=== PATIENT | female | born 1980 | race Caucasian/White ===

== ENCOUNTER 2020-06-28 09:02 | Emergency (ER) | payer MEDICAID, SELFPAY ==
[2020-06-28] VITALS (23 sets, daily range): BP systolic 111–145; BP diastolic 61–100; PULSE 61–88; RESP 12–22; TEMP 37.2; O2SAT 96–100
--- NOTE | 2020-06-28 09:00 | DI.CT_ITS ---
EXAM: CT CHEST PE ABD PELVIS W CLINICAL HISTORY: right sided chest pain and abdominal pain. TECHNIQUE: Imaging Protocol: Axial CT angiography was performed with multi-slice acquisition and mu lti-planar and/or 3D reconstructions. CONTRAST MATERIAL: Intravenous: Omnipaque 350 Contrast volume:100 mL COMPARISON: No exams were available for comparison FINDINGS: CHEST: Pulmonary Arteries: No evidence of filling defect to suggest pulmonary emboli. Tracheobronchial tree: Patent where visualized. Mediastinum and Deborah: No dominant adenopathy or fluid collection. Small hiatal hernia. Pulmonary parenchyma: No consolidation or dominant measurable mass. No architectural distortion. Mild dependent atelectasis. Pleura: No effusion or pneumothorax. Heart: The heart is not dilated. No coronary artery calcifications are seen. No pericardial effusion. Aorta: Thoracic aorta non-dilated. No evidence of dissection. Bones: Degenerative changes. ABDOMEN: Liver: Normal density. There is a tiny hypodense lesion in the right lobe of the liver. It is too sm all for further characterization, but likely reflects a small cyst. The liver is mildly enlarged trey suring 18 cm in length. Portal, Superior Mesenteric, and Splenic Veins: Unremarkable. Gallbladder and Biliary Tract: No radiodense calculus or dilation. Pancreas: Normal density, no abnormal calcifications or inflammatory process. Spleen: Normal. Adrenals: No masses seen. Kidneys: Normal size, contour and axis. No radiodense stones or obstructive uropathy. No masses seen. Abdominal Aorta: Abdominal portion non-dilated. Bowel: No obstruction or bowel wall thickening. The appendix crosses the midline to the left and is u nremarkable. Peritoneal Cavity: No ascites, collection or mesenteric inflammatory response. Lymph Nodes: Within normal limits. Bones: Unremarkable. Soft Tissues: Unremarkable. PELVIS: Bladder: Nondistended. There is thickening of the wall of the urinary bladder. This likely is due t o the underdistention. No inflammatory changes are seen around the urinary bladder. Cystitis is con sidered less likely. Please correlate clinically. Reproductive Organs: Unremarkable as visualized. The patient has an IUD which appears to be in good p osition. Bilateral ovarian cysts are present. The largest is on the left ovary and measures 2 x 1.8 cm. Lymph Nodes: Within normal limits. Bones: Within normal limits. IMPRESSION: 1. No evidence of an acute abdominal or pelvic process. 2. Apparent thickening of the wall of the urinary bladder. This is likely due to underdistention. N o inflammatory changes are present. Cystitis is considered less likely. 3. 4. No evidence of pulmonary embolus, thoracic aortic dissection or aneurysm. 5. No acute pulmonary process. RADIATION DOSE DELIVERED: 1,417.18mGy.cm Total DLP 1,417.18mGy.cm Total DLP DATA REPOSITORY: All CT scans at this facility are submitted to the National Radiology Data Registry (NRDR) Dose Index Registry (DIR) with the [employer] (A[employer]). RADIATION OPTIMIZATION: All CT scans at this facility use at least one of these dose optimization te chniques: automated exposure control; mA and/or kV adjustment per patient size (includes targeted exa ms where dose is matched to clinical indication); or iterative reconstruction.
--- NOTE | 2020-06-28 09:00 | RT.EKG_ITS ---
APPROVED REPORT Exam: Resting ECG Patient Location: E HR:66 bpm ECG Measurements Heart Rate 66 AXIS AZ 150 P 45 QRSd 89 QRS 44 QT 409 T 39 QTc 427 Conclusion Sinus arrhythmia...V-rate 52- 72, variation>10% no acute ischemic findings
--- NOTE | 2020-06-28 09:12 | ED.GENADUL_ITS ---
Discharge Plan Disposition Patient Disposition: AGAINST MEDICAL ADVICE Condition: Stable Discharge Details Clinical Impression: Chest pain Primary Care Provider: Gabriela,Local ED Provider: Patrick Kumar Home Meds and New Rx's Prescriptions: Continued Mirena 20 mcg/24 hours (6 yrs) 52 mg Intrauterine Device 1 device INTRAUTERINE ONCE RF: 0 methadone 10 mg/mL Concentrate 80 mg PO DAILY RF: 0 naproxen sodium [Aleve] 220 mg Capsule 220 mg PO BID RF: 0 Discharge Instructions Instructions: Chest Pain (ED) Additional Instructions: you decided not to stay for repeat blood work if you develop severe worsening pain, difficulty breathing or feel more ill return to the emergency department follow up with your primary care provider as soon as possible for the chest pain as well as likely undiagnosed diabetes Medical Decision Making 40 yo female on methadone, smoker, who comes in with chest tightness starting an hour ago while driving to [facility], got her methadone then ems was called and she was transported here. She states she had similar pain a month ago and was diagnosed with a virus. She has had n/v x1 as well. She arrives hd stable with unremarkable ekg. She is speaking in full sentences and appears anxious on exam. She has tenderness to palpation to the right abdomen and right chest no distention normal bowel sounds, clear lungs without murmurs. No rashes on the hands or other stigmata of endocarditis. This could be chest wall pain but given description of chest tightness and heart score of 2 will obtain troponin. She has a wells score that is moderate so will obtain CTA for PE and also abdomen/pelvis ct given the right sided abdominal tenderness and concern for possible pancreatitis vs cholecystitis. pt's labs show elevated glucose with glucosuria so likely has undiagnosed DM, also has leukocytosis which is likely reactive. No infectious symptoms. On reassessment she is feeling better without tenderness. Suspect this could be cannabinoid induced vomit given she is positive for thc. Will obtain delta troponin and continue to monitor. pt now doesn't want to stay for repeat tropoin and ecg. She has capacity to make her own decisions and understands risks of leaving and missing an nstemi including and permanent disability and is willing to accept these risks. I advised her she can always return if she changes her mind. I am placing her on our follow up list as well to see her pcp as soon as possible for the chest pain as well as likely undiagnosed t2dm Differential Diagnosis Differential Diagnosis: costochondirtis, PE, nstemi, cholecystitis Medical Records Medical records reviewed: Yes I reviewed the patient's medical records. Imaging Data Radiologic Study: Attestation: I personally reviewed and interpreted this imaging study as follows: Imaging: CT Scan Radiologist's impression: IMPRESSION: 1. No evidence of an acute abdominal or pelvic process. 2. Apparent thickening of the wall of the urinary bladder. This is likely due to underdistention. No inflammatory changes are present. Cystitis is considered less likely. 3. 4. No evidence of pulmonary embolus, thoracic aortic dissection or aneurysm. 5. No acute pulmonary process. Lab Data Lab results reviewed: Yes I reviewed the patient's lab results. ECG Data Attestation: I personally reviewed and interpreted this ECG (s) as follows: Prior ECG tracings: not available for review Interpretation: sinus rhythm, rate of 66, pr 150, qtc 427, no acute st t wave ischemic findings HPI General Mode of arrival: EMS . Date/Time Provider Initiated Documentation: 06/28/20 09:07 . Limitations to Documentation: no limitations . Information obtained by: patient . History of Present Illness 40 year old F presents to the emergency department with the chief complaint of chest pain, described as moderate, with intensity rated at 5. Quality is described as aching, and is localized to the chest. Patient reports no radiation. Patient started experiencing this hour(s) (1) and it has been constant. No relieving factors improve symptom(s), No exacerbating factors reported . Patient notes nausea/vomiting. Patient did receive the following treatments prior to arrival, none Related Data Home Medications Medication Instructions Recorded Confirmed Mirena 1 device INTRAUTERINE ONCE 06/28/20 06/28/20 methadone 80 mg PO DAILY 06/28/20 06/28/20 naproxen sodium [Aleve] 220 mg PO BID 06/28/20 06/28/20 Allergies Allergy/AdvReac Type Severity Reaction Status Date / Time latex Allergy Skin Rash Unverified 06/28/20 09:05 General Stated Complaint: Chest Pain DAVIDE: 2 Review of Systems All systems reviewed & are unremarkable except as noted in HPI and below Constitutional Constitutional: Denies chills, Denies fever(s) and Denies weakness Cardiovascular Cardiovascular: Denies dyspnea Respiratory Respiratory: Denies cough and Denies dyspnea Musculoskeletal Musculoskeletal: Denies joint swelling Neurologic Neurologic: Denies weakness [facility] Medical History (Updated 06/28/20 @ 11:39 by Patrick Kumar MD) Substance abuse clean x 3 years, on Methadone through [facility] Surgical History (Updated 06/28/20 @ 09:07 by Anahi Topete) H/O: Social History Smoking/Tobacco Use Status: Current every day Tobacco Type: cigarettes Smoking risk assessment performed?: Yes Alcohol Intake: never Drug use: Daily Substance use type: marijuana Do you feel safe at home: Yes Do you feel safe in your relationship?: Yes Exam Const General: no acute distress Orientation: alert HENMT Head: normal to inspection Ears: external ears normal General nose exam: external nose normal Mouth: moist mucous membranes Eyes General: appearance normal, both eyes and all related structures Neck Neck: normal visual inspection Chest Chest: tenderness Resp Effort & Inspection: normal respiratory effort and able to speak in complete sentences Cardio Rate: regular rate GI Palpation: not rigid and tender Skin General skin exam: no rashes or lesions noted Neuro General: patient alert and patient oriented x3 Extrem General: normal to inspection Psych Mental Status: mental status grossly normal Course Vital Signs Vital signs: Vital Signs Temperature 37.2 C 06/28/20 09:02 Pulse 68 06/28/20 09:02 Respiratory Rate 20 06/28/20 09:02 Blood Pressure 145/100 H 06/28/20 09:02 Pulse Oximetry 99 06/28/20 09:02 Temperature 37.2 C 06/28/20 09:02 Temperature Source Skin 06/28/20 09:02 Pulse 68 06/28/20 09:02 Respiratory Rate 20 06/28/20 09:02 Respiratory Effort Non-Labored 06/28/20 09:08 Blood Pressure 145/100 H 06/28/20 09:02 Blood Pressure Position Supine 06/28/20 09:02 Pulse Oximetry 99 06/28/20 09:02 Oxygen Delivery Method Room Air 06/28/20 09:02 Oxygen Flow Rate 0 06/28/20 09:02 Pain Level 6 06/28/20 09:02
[2020-06-28 09:22] LABS: Absolute Basophil Count 0.08 10^3/uL (0.0-0.2); Absolute Eosinophil Count 0.06 10^3/uL (0.0-0.7); Basophils % 0.4; Eosinophils % 0.3; HCT 43.3 % (36.0-46.0); HGB 14.7 g/dL (11.2-15.7); Immature Grans % 0.5; MCH 29.6 pg (27.0-33.0); MCHC 33.9 % (32.0-36.0); MCV 87.1 fL (80-95); MPV 8.7 fL (8.0-11.0); Monocytes % 3.6; Neutrophils % 85.2; Nucleated RBC 0 %; Platelet Count 339 10^3/uL (130-400); RBC 4.97 10^6/uL (3.93-5.22); RDW 11.8 % (11.7-14.6); RDW-SD 37.6 fL; WBC 19.38 10^3/uL (4.4-10.8)
[2020-06-28 09:29] LABS: Absolute Lymphocyte Count 1.94 10^3/uL (1.2-3.4); Absolute Neutrophil Count 16.51 10^3/uL (1.2-6.7)
[2020-06-28 09:33] LABS: Bilirubin Negative (Negative); Blood Trace-intact (Negative); Clarity Clear (Clear); Glucose >=1000 mg/dL (Negative); Ketones 15 mg/dL (Negative); Leukocyte Esterase Negative (Negative); Nitrite Negative (Negative); Specific Gravity >= 1.030 (1.005-1.025); Urobilinogen 0.2 EU/dL (Up TO 0.2); pH 6.5 (5-8)
[2020-06-28] MEDS: Ondansetron 4 MG/2 ML VIAL IVP (09:33)
[2020-06-28 09:34] LABS: PTT Activated 24.5 sec (21.0-27.5); Prothrombin Time 10.3 sec (9.3-11.0)
[2020-06-28 09:36] LABS: ALT 20 U/L (14-59); AST 14 U/L (15-37); Albumin 3.9 g/dL (3.4-5.0); Alkaline Phosphatase 114 U/L (46-116); BUN 9 mg/dL (7-18); Bilirubin, Total 0.3 mg/dL (0.2-1.0); CREATININE 0.8 mg/dL (0.55-1.02); Calcium 8.9 mg/dL (8.5-10.1); Chloride 99 mmol/L (98-107); Glucose 238 mg/dL (74-106); Lipase 88 U/L (73-393); Magnesium 1.7 mg/dL (1.8-2.4); Sodium 137 mmol/L (136-145)
[2020-06-28 09:38] LABS: Bilirubin, Direct < 0.05 mg/dL (0.00-0.20); Troponin I < 0.05 ng/mL (<0.06)
[2020-06-28 09:44] LABS: *AMPHETAMINES SCREEN URINE Negative (Negative); *BARBITURATES SCREEN URINE Negative (Negative); *BENZODIAZEPINES SCREEN URINE Negative (Negative); Cannabinoids THC POSITIVE (Negative); Cocaine Screen,Urine Negative (Negative); METHADONE URINE SCREEN POSITIVE (Negative); OPIATES URINE SCREEN Negative (Negative)
[2020-06-28 09:45] LABS: Bacteria Moderate HPF (Negative); C & S Indicated? No/Sq. Contamination; Casts Negative LPF (Negative); Crystals Negative HPF (Negative); Epithelial Cells Many HPF (Negative); Mucus Moderate (Negative); Tricyclic Antidepressants Negative (Negative)
[2020-06-28] MEDS: Omnipaque 350 MG/ML 100 ML BTL IJ (09:55)
[2020-06-28] MEDS: Normal Saline - Diluent 50 ML VIAL IV (09:56)
[2020-06-28 10:15] LABS: D-Dimer 223 ng/mlFEU (<500)
[2020-06-28] MEDS: Prochlorperazine 10 MG/2 ML VIAL IVP (10:34)
--- NOTE | 2020-06-28 20:37 | NUR.NOTE ---
referral sent to CM to establish new PCP Jose Palmer Note:
--- NOTE | 2020-07-01 11:45 | PDOC.ERCMPRO ---
- If Service Date Differs Date of service: 07/01/20 Time of Service: 11:45 Care Management Progress Note Lashawn is seen in the ED on 06/28/2020 for chest pain. She is unwilling to remain for a repeat troponin and ecg and leaves against medical advice. MIKE is asked to arrange a follow up appointment with PCP. CM attempts to contact Lashawn by telephone at the number listed in her chart ([phone]) but the number is her [id number]'s. A message is left for Lashawn to call me. Per [id number], Lashawn is residing in a motel in [place], [place]. MIKE then contacts [facility] ([facility]) in [place], [place], as Lashawn reported to ED provider that she receives care at their clinic. MIKE is told Lashawn has not been seen by anyone at [facility] since 2012 and is no longer considered an active patient. MIKE will await a return phone call from Lashawn before proceeding with referral.
== END 2020-06-28 12:55 | disposition left against medical advice (07) ==
PROVIDERS: Emergency Provider Emergency Medicine
DX: R07.89 Other chest pain (principal); R11.2 Nausea with vomiting, unspecified; R73.9 Hyperglycemia, unspecified; Z53.29 Procedure and treatment not carried out because of patient's decision for other reasons
CPT/HCPCS: 36415; 71275; 74177; 80053; 80307; 81025; 83690; 93005; 96374; 96375; 99285; 81003; 81015; 82248; 83735; 84484; 85025; 85379; 85610; 85730; 93010; J0780; J2405; J3490